=== PATIENT | male | born 1975 | race Two or more races ===

== ENCOUNTER 2018-06-23 04:02 | Emergency (ER) | payer MEDICAID, OTHER ==
[~2018-06-23] VITALS: Ht 172.7 cm; Wt 144.7 kg
[2018-06-23 04:06] VITALS: BP 142/99
--- NOTE | 2018-06-23 04:06 | NUR ---
PT BIB [place] WITH A C/O ABD PAIN SINCE 1930 S/P EATING DIM SUM RICE. PT STATED THAT HE HAD DIARRHEA AND VOMITTED X2 MAINTENANCE [employer]. 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 PT AMBULATED TO THE BATHROOM WITH A STEADY GAIT. PT TRIED TO GIVE A URINE SAMPLE. PT THEN AMBULATED TO ER 7 WITH A STEADY GAIT. EKG WAS ORDERED AND PT REFUSED EKG AND REFUSED TO BE CONNECTED TO THE MONITOR.
--- NOTE | 2018-06-23 04:13 | NUR ---
PT REFUSED TX AND PT ELOPED.
[2018-06-23] MEDS ORDERED: MAG HYDROX/AL HYDROX/SIMETH 30 ML UDC PO ONE (04:30)
[2018-06-23] MEDS ORDERED: FAMOTIDINE (20 MG) 20 MG TABLET PO ONE (04:30)
--- NOTE | 2018-06-23 04:38 | NUR ---
PT DENIED BEING HOMELESS.
== END 2018-06-23 04:36 | disposition left against medical advice (07) ==
LOC: ER 04:04
DX: Z53.21 Procedure and treatment not carried out due to patient leaving prior to being seen by health care provider (principal); R10.9 Unspecified abdominal pain; R11.10 Vomiting, unspecified; R19.7 Diarrhea, unspecified; F32.9 Major depressive disorder, single episode, unspecified